=== PATIENT | female | born 1940 | race Caucasian/White ===

== ENCOUNTER 2020-07-17 10:32 | Emergency (ER) | payer MEDICARE, SELFPAY ==
[2020-07-17 10:51] VITALS: BP 117/60; PULSE 54; RESP 20; TEMP 36.4; O2SAT 98
[2020-07-17] MEDS: TETANUS,DIPHTHERIA,AC PERTUSSIS ADULT (0.5 ML) BOOSTRIX IM (11:07)
--- NOTE | 2020-07-17 11:52 | ED.ANIMALBIT ---
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 Patient states that she sustained a provoked bite to her right thenar area, as she tried to take away some food. Tetanus status is uncertain, she requests update. Symptoms are mild, better with compression or elevation from abrasion of the thumb metacarpal, and scattered superficial punctures of thumb webspace. Discussed plan and she agrees to loosely approximate the deeper punctures, using Steri-Strips and wound glue-but not gluing the wound directly [just bandages]. Related Data Home Medications Medication Instructions Recorded Confirmed cyclosporine [Restasis MultiDose] drp 07/17/20 diltiazem HCl PO 07/17/20 furosemide 07/17/20 metoprolol succinate PO 07/17/20 potassium chloride meq PO 07/17/20 pravastatin 07/17/20 rivaroxaban [Xarelto] mg 07/17/20 Allergies Allergy/AdvReac Type Severity Reaction Status Date / Time No Known Allergies Allergy Verified 09/25/18 09:46 Review of Systems Review of Systems: Narrative: General/Constitutional: No weight loss,fever Eyes: N0: Redness,discharge Ears/Nose/Throat: No: Epistaxis,ear discharge Respiratory: Denies: Hemoptysis Gastrointestinal: No Vomiting, Bleeding-rectal Skin: No Lumps, eruption Neurologic: No Focal Weakness,Sz Hematologic: Denies: Petechiae/Purpura Psychiatric: No: Suicida ideationl All Other Systems: Reviewed and Negative [facility] Social History Social History Gender identity (if verbalized by the patient): Female Comments At time of signature, agree with nursing past medical, surgical, social and family history. There is no relevant family history pertinent to the presenting complaint Exam Narrative: Exam Narrative: General Appearance: Well appearing, , Conjunctiva clear Ears: External ear normal, Auditory canal normal Nose: Normal nose, Nares clear Mouth/Throat: Normal appearing, Normal lips Neck: Supple Respiratory: Airway patent, No respiratory distress Skin: Warm, Dry, Normal color, abrasion distal to snuffbox; only fairly approximating punctures to the thenar mm MS- hand: Normal strength (mostly intact, limited flexion/extension by pain), Tenderness ( thenar, with mild decreased ROM), Swelling (laterally), Other (no anterior drawer, no collateral laxity, Neurological: A&O x3, , Normal affect Course Vital Signs Vital signs: Vital Signs Temperature 97.5 F L 07/17/20 10:51 Pulse Rate 54 L 07/17/20 10:51 Respiratory Rate 20 07/17/20 10:51 Blood Pressure 117/60 07/17/20 10:51 Pulse Oximetry 98 07/17/20 10:51 Temperature 97.5 F L 07/17/20 10:51 Pulse Rate 54 L 07/17/20 10:51 Respiratory Rate 20 07/17/20 10:51 Blood Pressure 117/60 07/17/20 10:51 Pulse Oximetry 98 07/17/20 10:51 Procedures Laceration Laceration 1: Date: 07/17/20 Site: upper extremity Side (If applicable): right Size (cm): 1 Description: linear Pre-repair: irrigated extensively ====== Skin Level ====== Skin layer closed with: dermabond and steri strips ====== Subcutaneous Layer ====== ====== Muscle Layer ====== ====== Tendon Layer ====== Discharge Plan Discharge Clinical Impression: Dog bite Qualifiers: Encounter type: initial encounter Qualified Code(s): W54.0XXA - Bitten by dog, initial encounter Patient Disposition: Home, Self-Care Condition: Stable Instructions: Antibiotic Form, Animal Bite (ED) Prescriptions: New amoxicillin-pot clavulanate [Augmentin] 500-125 mg tablet 1 tablet PO Q12H Qty: 10 RF: 0 tramadol 50 mg tablet 50 mg PO Q6H PRN (Reason: pain) Qty: 15 RF: 1 mupirocin 2 % ointment 1 ap
== END 2020-07-17 11:42 | disposition home or self-care (01) ==
PROVIDERS: Emergency Provider Emergency Medicine; PCP Nurse Practitioner Adult Health
DX: S61.411A Laceration without foreign body of right hand, initial encounter (principal); W54.0XXA Bitten by dog, initial encounter; Z23 Encounter for immunization; I48.91 Unspecified atrial fibrillation; I11.0 Hypertensive heart disease with heart failure; I50.9 Heart failure, unspecified; I25.10 Atherosclerotic heart disease of native coronary artery without angina pectoris; E78.00 Pure hypercholesterolemia, unspecified
CPT/HCPCS: 12001; 90471; 90715; 99213; G0463

== ENCOUNTER → 2020-11-03 10:22 | Outpatient (CLI) | payer MEDICARE, SELFPAY ==
--- NOTE | ~2020-11-03 | MM_ITS ---
EXAMINATION: MM screening rober BI w paresh HISTORY: Screening mammogram TECHNIQUE: Craniocaudal and mediolateral oblique 3-D tomosynthesis images were obtained and synthetic 2-D images were generated. CAD analysis was submitted and interpreted. COMPARISON: 08/28/2018, 05/24/2016, 02/01/2015 bilateral digital screening mammogram examinations BREAST PARENCHYMAL COMPOSITION: There are scattered areas of fibroglandular density. FINDINGS: There is no evidence of suspicious mass, calcification, or architectural distortion to sugg est malignancy in either breast. There has been no suspicious interval change. IMPRESSION: 1. No mammographic evidence of malignancy. 2. Recommend routine screening mammography in one year. BI-RADS Category 1: Negative Reviewed, dictated and finalized at location A.
== END ==
PROVIDERS: PCP Nurse Practitioner Adult Health; Visit Provider Nurse Practitioner Adult Health
DX: Z12.31 Encounter for screening mammogram for malignant neoplasm of breast (principal)
CPT/HCPCS: 77063; 77067

== ENCOUNTER 2021-04-07 21:15 | Inpatient (IN) | payer MEDICARE, SELFPAY ==
--- NOTE | ~2021-04-07 | XR_ITS ---
EXAMINATION: XR chest 2V DATE: 04/07/2021 22:27 INDICATION: Shortness of breath TECHNIQUE: AP and lateral views of the chest are obtained. COMPARISON: 12/02/2015 FINDINGS: The lungs are free of acute opacities. There is no pleural effusion or pneumothorax. The ca rdiomediastinal silhouette is normal. There are bridging osteophytes at multiple levels in the spine, consistent with diffuse idiopathic skeletal hyperostosis (DISH). Surgical clips in the right upper q uadrant are likely from prior cholecystectomy. IMPRESSION: 1. No acute cardiopulmonary abnormality. Reviewed, dictated and finalized at location A.
--- NOTE | 2021-04-07 21:17 | ECG_ITS ---
Measurements Intervals [place] Rate: 106 P: SD: 0 QRS: -10 QRSD: 83 T: 25 QT: 302 QTc: 402 Interpretive Statements ATRIAL FIBRILLATION WITH RAPID VENTRICULAR RESPONSE MISSING LEAD V3 INCOMPLETE RIGHT BUNDLE BRANCH BLOCK CONSIDER INFERIOR INFARCT, AGE INDETERMINATE BORDERLINE ST-T WAVE ABNORMALITY- ANTEROLAT/HIGH LAT LEADS ABNORMAL ECG Electronically Signed On 04-07-2021 23:15:37 CDT by Petr Paul D.O.
[2021-04-07 21:18] VITALS: BP 113/76; PULSE 128; RESP 20; TEMP 36.7; O2SAT 100
--- NOTE | 2021-04-07 21:41 | PC.NURSE ---
contacted pt. daughter to be in room w/ pt. states she will be right in.
[2021-04-07 22:16] VITALS: BP 136/78; PULSE 107; RESP 20; O2SAT 99
[2021-04-07 22:18] LABS: Basophils Absolute Auto 0.1 K/mm3 (0.0-0.1); Basophils Percent Auto 0.9 % (0.2-1.2); Eosinophils Absolute Auto 0.1 K/mm3 (0-0.3); Eosinophils Percent Auto 0.9 % (0-4.4); Hematocrit 35.9 % (37.0-47.0); Hemoglobin 11.3 g/dL (12.0-15.0); Immature Granulocyte Absolute 0.02 K/mm3 (0.00-0.031); Immature Granulocyte Percent A 0.3 % (0-0.5); Lymphocytes Absolute Auto 2.16 K/mm3 (0.9-3.2); Mean Corpuscular HGB Conc 31.5 g/dl (32-36); Mean Corpuscular Hemoglobin 29.7 pg (26-34); Mean Corpuscular Volume 94.5 fl (80-100); Monocytes Absolute Auto 0.6 K/mm3 (0.1-0.6); Monocytes Percent Auto 8.2 % (2.6-8.5); Neutrophils Absolute Auto 4.1 K/mm3 (1.3-6.7); Neutrophils Percent Auto 58.7 % (45.5-73.1); Platelet Count Result 364 k/mm3 (150-375); Red Cell Distribution Width 14.2 % (11.5-14.5)
--- NOTE | 2021-04-07 22:22 | PC.NURSE ---
Pt to XY via stretcher at this time
[2021-04-07 22:31] LABS: Anion Gap 11 mmol/L (8-16); Blood Urea Nitrogen 13 mg/dL (7-17); Calcium 9.1 mg/dL (8.4-10.2); Carbon Dioxide 31 mmol/L (22-30); Chloride 97 mmol/L (98-107); Estimated CRCL calculation 47 ml/min; Estimated Glomerular Filt Rate > 60; Glucose 121 mg/dL (65-110); Potassium 2.3 mmol/L (3.4-5.0); Sodium 139 mmol/L (137-145)
--- NOTE | 2021-04-07 22:51 | PC.NURSE ---
Pt ambulated to bathroom with steady gait.
--- NOTE | 2021-04-07 23:03 | ED.DIZZY ---
HPI - Dizziness General Chief Complaint: Dizziness Stated Complaint: Dizzy Time Seen by Provider: 04/07/21 22:07 History of Present Illness HPI Narrative: Patient with recent discharge from rehab and history of chronic kidney disease atrial fibrillation PE and recent facial surgery for malignancy presents with dizziness. And reports she was walking around the house today and was feeling dizzy and lightheaded so she came to the ER for evaluation. She denies recent fevers,, congestion. She denies focal areas of pain chest pain or abdominal pain. She denies recent nausea vomiting or changes in appetite. Reports a history of hypokalemia causing dizziness and concerned that similar things happening today. She has previously taken potassium pills but those were discontinued given her recent hospital course and she was recently restarted on her Lasix. Related Data Home Medications Medication Instructions Recorded Confirmed furosemide 20 mg PO DAILY 04/08/21 04/08/21 Allergies Allergy/AdvReac Type Severity Reaction Status Date / Time No Known Allergies Allergy Verified 04/08/21 01:27 Review of Systems Review of Systems: CONSTITUTIONAL: Denies fever, chills, or sweats. EYES: Denies visual changes, redness, or discharge. ENT: Denies rhinorrhea, congestion, sore throat, or otalgia. CARDIOVASCULAR: Denies chest pain, palpitations, or edema. RESPIRATORY: Denies cough or dyspnea. GASTROINTESTINAL: Denies abdominal pain, nausea, vomiting, or diarrhea. GENITOURINARY: Denies dysuria or hematuria. SKIN: Denies rash or itching. MUSCULOSKELETAL: Denies back pain, joint pain, or myalgia. NEUROLOGIC: Denies headache, numbness, dizziness, or weakness. PSYCHIATRIC: Denies anxiety or depression. All systems reviewed & are unremarkable except as noted in HPI and below PMFSH Past Medical History Medical History Atrial fibrillation Chronic kidney disease Hyperlipidemia Hypertension Surgical History Surgical History H/O knee surgery H/O tubal ligation History of cholecystectomy S/P sinus surgery Family History Family History (Updated 04/08/21 @ 00:59 by Ni Han RN) Father Acute myocardial infarction Testicular cancer Mother Acute myocardial infarction Sibling Thyroid ca Social History Social History Social History: patient lives with her in a single-level home. Patient works full-time and was completely independent prior to admission. Daughter will provide assistance at time of discharge Alcohol intake: never Substance use: never Substance use type: does not use Gender identity (if verbalized by the patient): Female Spiritual care concerns: No Exam Narrative: GENERAL: Well-appearing, well-nourished, and in no acute distress. HEAD: Normocephalic, atraumatic. EYES: PERRLA and EOMI. ENT: Nares clear, no rhinorrhea or epistaxis. Mucous membranes moist. NECK: Supple. No masses. No JVD CHEST: Clear to auscultation. No respiratory distress. No wheezes rales or rhonchi HEART: Regular rate and rhythm. No murmur heard. Normal peripheral pulses. ABDOMEN: Soft, nontender, nondistended, normal active bowel sounds. EXTREMITIES: Normal range of motion. No edema. SKIN: Warm, dry, no rash. NEURO: No focal deficits. Alert and oriented x3. PSYCH: Normal mood and affect. Course Reevaluation(s) Reevaluation #1: Labs and plan reviewed with patient. Patient comfortable with the inpatient plan. Call placed to hospitalist team. Date: 04/07/21 Time: 23:07 Vital Signs Vital signs: Vital Signs Temperature 36.7 C 04/07/21 21:18 Pulse Rate 128 H 04/07/21 21:18 Respiratory Rate 20 04/07/21 21:18 Blood Pressure 113/76 04/07/21 21:18 Pulse Oximetry 100 04/07/21 21:18 Temperature 37.0 C 04/08/21 00:58 Pulse Rate 85 1
[2021-04-07 23:16] LABS: Add Urine Microscopic? YES; Appearance Urine Cloudy (Clear); Bacteria Urine Trace /hpf; Bilirubin Urine Negative (Negative); Blood Urine Negative (Negative); Color Urine Yellow (Yellow); Glucose Urine UA Negative (Negative); Ketones Urine Trace mg/dL (Negative); Leukocyte Esterase Ur 1+ LEU/UL (Negative); Mucus Urine Few /lpf; Nitrate Urine Negative (Negative); Protein Urine 1+ mg/dL (Negative); Specific Grav Ur 1.021 (1.001-1.035); Squamous Epithelial Cell Urine Many /hpf (Few); Transitional Epi Cells Urine Rare /hpf (None Seen); Urobilinogen Urine Negative mg/dL (<2.0); WBC Urine 21-30 /hpf
[2021-04-07 23:22] VITALS: BP 137/72; PULSE 98; RESP 19; O2SAT 100
[2021-04-07] MEDS: SODIUM CHLORIDE 0.9% IV 1,000 ML 125 ML (23:23)
[2021-04-08] VITALS (12 sets, daily range): BP systolic 114–152; BP diastolic 65–73; PULSE 82–134; RESP 16–20; TEMP 36.4–37.2; O2SAT 91–100; BMI 28.3
--- NOTE | 2021-04-08 00:46 | ADMGEN ---
This patient, Sulema Salamanca, was admitted to 2 Medical Room 240-. Patient/family oriented to hospital policies and general routines including ID bracelet, bed and alarms, visiting hours, pain management, procedures, bathroom and other care routines, personal items, smoking policy, room service/diet, and visiting hours. Information on how to activate the Rapid Response Team has been discussed. Patient/Family are encouraged to report perceived risks to care and to ask questions if they do not understand what they are told or what they should do.
[2021-04-08 06:13] LABS: Anion Gap 6 mmol/L (8-16); Blood Urea Nitrogen 10 mg/dL (7-17); Calcium 8.3 mg/dL (8.4-10.2); Carbon Dioxide 32 mmol/L (22-30); Chloride 103 mmol/L (98-107); Estimated CRCL calculation 61 ml/min; Estimated Glomerular Filt Rate > 60; Glucose 109 mg/dL (65-110); Potassium 2.6 mmol/L (3.4-5.0); Sodium 141 mmol/L (137-145)
[2021-04-08 06:49] LABS: Magnesium 1.9 mg/dL (1.6-2.3)
[2021-04-08] MEDS: SODIUM CHLORIDE 0.9% IV 1,000 ML 125 ML IV CONT (07:07)
--- NOTE | 2021-04-08 09:19 | PM.IMHP ---
H&P: HPI History of Present Illness Date/Time: 04/08/21 09:19 <Maria Shaw PA-C - Last Filed: 04/08/21 10:28> Chief Complaint: Dizziness <Maria Shaw PA-C - Last Filed: 04/08/21 10:28> Narrative: Patient is a 80-year-old female with a recent history of adenoid cystic carcinoma with resection, AFib, recent PE, and hyperlipidemia who presented emergency room for dizziness. Patient states the dizziness started last night around 8:00 p.m. She explains that it was continuous and movement nor resting helped improve it. She said she has had this dizziness before and is associated with low potassium. She has no complaints of dizziness today and is feeling much better. She states that her Lasix was discontinued after leaving rehab but her primary care physician continued it. She did not continue her potassium with the Lasix. 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 She has had issues of extremity swelling in the past but today has not had any swelling. She has been eating and drinking okay and has not had any diarrhea. 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 She believes the cancer is contained in her sinus cavity with no evidence of brain metastases. She denies chest pain, shortness of breath, fevers, nausea, vomiting, abdominal pain, constipation, double vision, or rashes/wounds. <Maria Shaw PA-C - Last Filed: 04/08/21 10:28> Review of Systems Review of Systems: All systems reviewed & are unremarkable except as noted in HPI and below <Maria Shaw PA-C - Last Filed: 04/08/21 10:28> [facility] Past Medical History Medical History: Medical History (Updated 04/08/21 @ 10:24 by Maria Shaw PA-C) Adenoid cystic carcinoma Atrial fibrillation Chronic kidney disease Hyperlipidemia Hypertension <Maria Shaw PA-C - Last Filed: 04/08/21 10:28> Surgical History Surgical History: Surgical History H/O knee surgery H/O tubal ligation History of cholecystectomy S/P sinus surgery <Maria Shaw PA-C - Last Filed: 04/08/21 10:28> Family History Family History: Family History Father Acute myocardial infarction Testicular cancer Mother Acute myocardial infarction Sibling Thyroid ca <Maria Shaw PA-C - Last Filed: 04/08/21 10:28> Social History Social History: Social History (Updated 04/08/21 @ 10:27 by Maria Shaw PA-C) Social History: Patient was working up until last month when she had her surgery. She was a never smoker, does not drink alcohol and does not do drugs. She would like her daughter, Erica and Samuel to make decisions for her if she is unable to make them. She would like to be a full code Smoking status: Never smoker Alcohol intake: never Substance use: never Substance use type: does not use Gender identity (if verbalized by the patient): Female Spiritual care concerns: No <Maria Shaw PA-C - Last Filed: 04/08/21 10:28> Meds Home Medications and Allergies Home medications: Home Medications Medication Instructions Recorded Confirmed Type acetaminophen [Mapap 650 mg PO Q4H PRN #0 tablet 03/26/21 04/08/21 Rx (acetaminophen)] calcium carbonate-vitamin D3 500 mg PO QAM #0 tablet 03/26/21 04/08/21 Rx [Oyster Shell Calcium-Vit D3] chlorhexidine gluconate 15 ml SWISHSPIT PCHS #0 ml 03/26/21 04/08/21 Rx diltiazem HCl 180 mg PO QAM #30 cap 03/26/21 04/08/21 Rx pravastatin 40 mg PO BEDTIME #0 tablet 03/26/21 04/08/21 Rx sodium chloride [Saline Mist] 1 spray INTRANASAL Q6HR PRN #0 ml 03/26/21 04/08/21 Rx Eliquis 5 mg PO BID #60 tablet 03/27/21 04/08/21 Rx furosemide 20 mg PO DAILY 04/08/21 04/08/21 History metoprolol tartrate 100 mg PO Q12H 04/09/21 04/09/21 History pota
[2021-04-08] MEDS: dilTIAZem HCL CD 180 MG CAP.ER.24H PO (11:10)
[2021-04-08] MEDS: MAGNESIUM OXIDE 400 MG TABLET PO (11:11)
[2021-04-08] MEDS: APIXABAN 5 MG TABLET PO ×2 (11:11→17:02)
[2021-04-08] MEDS: METOPROLOL TARTRATE 50 MG TAB 100 MG PO ×2 (11:50→21:08)
[2021-04-08 14:07] LABS: Anion Gap 6 mmol/L (8-16); Blood Urea Nitrogen 8 mg/dL (7-17); Calcium 8.2 mg/dL (8.4-10.2); Carbon Dioxide 31 mmol/L (22-30); Chloride 103 mmol/L (98-107); Estimated CRCL calculation 61 ml/min; Estimated Glomerular Filt Rate > 60; Glucose 150 mg/dL (65-110); Potassium 3.4 mmol/L (3.4-5.0); Sodium 140 mmol/L (137-145)
[2021-04-08] MEDS: POTASSIUM CHLORIDE 20 MEQ PACKET (FOR LIQUID) PO (17:02)
[2021-04-08] MEDS: PRAVASTATIN SODIUM 20 MG TABLET 40 MG PO (21:08)
[2021-04-09] VITALS: BP 114/56; PULSE 72; PULSE 80; RESP 18; TEMP 36.4; O2SAT 98
[2021-04-09 04:00] VITALS: BP 102/53; PULSE 71; PULSE 77; RESP 16; TEMP 36.3; O2SAT 97
[2021-04-09 05:39] LABS: Alanine Aminotransferase 19 U/L (4-35); Albumin Level 2.9 g/dL (3.5-5.1); Alkaline Phosphatase 74 U/L (38-126); Anion Gap 4 mmol/L (8-16); Aspartate Amino Transferase 30 U/L (14-36); Bilirubin,Total 0.1 mg/dL (0.2-1.3); Blood Urea Nitrogen 6 mg/dL (7-17); Calcium 8.6 mg/dL (8.4-10.2); Carbon Dioxide 29 mmol/L (22-30); Chloride 106 mmol/L (98-107); Estimated CRCL calculation 70 ml/min; Estimated Glomerular Filt Rate > 60; Glucose 114 mg/dL (65-110); Magnesium 2.1 mg/dL (1.6-2.3); Sodium 139 mmol/L (137-145)
[2021-04-09 08:00] VITALS: PULSE 103
[2021-04-09 08:39] VITALS: PULSE 94
[2021-04-09] MEDS: METOPROLOL TARTRATE 50 MG TAB 100 MG PO (08:39)
[2021-04-09] MEDS: dilTIAZem HCL CD 180 MG CAP.ER.24H PO (08:39)
[2021-04-09] MEDS: APIXABAN 5 MG TABLET PO (08:40)
[2021-04-09] MEDS: MAGNESIUM OXIDE 400 MG TABLET PO (08:41)
[2021-04-09] MEDS: POTASSIUM CHLORIDE 20 MEQ PACKET (FOR LIQUID) 40 MEQ PO (08:47)
--- NOTE | 2021-04-09 10:03 | PM.DS ---
DS: Admitting Diagnosis Discharge Date 04/09/21 Admitting Diagnosis dizziness, hypokalemia DS: Discharge Diagnosis Discharge Diagnosis (1) Acute hypokalemia: Code(s): E87.6 - Hypokalemia Status: Acute Assessment and Plan: Potassium was 2.3 on admission and improved during her stay -will continue potassium outpt and recheck labs next week. She agrees to f/u with pcp for results to see if her potassium needs to be adjusted. -the patient had recently held her Lasix and then restarted it but did not restart the potassium. This is likely the cause of hypokalemia -she denies diarrhea and her appetite has been good (2) Dizziness: Code(s): R42 - Dizziness and giddiness Status: Acute Assessment and Plan: Patient attributes this to above. Resolved. 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 Her CT was not adequately visualized the [extent] of the disease and she was referred to [facility] for [facility] evaluation. The patient underwent a nasal endoscopy with biopsy on 02/22/[address] Mays. [Pathology is not available to ok] She underwent a PET scan on 02/22/2021 and MRI on 02/26/2021. Both of these exams revealed an expansile mass involving the entirety of the maxillary sinus on the left side. [It] Appear[ed] to involve branches of the trigeminal nerve and expanded into the mass to caterer space. Her Arb orbit appear to be unremarkable. On 03/15/2021 patient underwent a left mass the max elect to ok, left deep lobe parotidectomy, left neck dissection and left orbital floor plating by Dr. Mays. (4) S/P sinus surgery: Code(s): Z98.890 - Other specified postprocedural states Status: Acute Assessment and Plan: As above (5) History of pulmonary embolus (PE): Code(s): Z86.711 - Personal history of pulmonary embolism Status: Acute Assessment and Plan: Per rehab notes:On 03/18/2021 patient was hypoxic after surgery. CT revealed pulmonary embolism involving numerous segments and subsegmental pulmonary emboli in all lobes with no evidence of right heart strain. She is now on Eliquis (6) Atrial fibrillation: Code(s): I48.91 - Unspecified atrial fibrillation Status: Acute Assessment and Plan: Continue metoprolol, diltiazem and Eliquis DS: Summary Hospital Course Hospital Course: DOS 04/09/21 Patient is a 80-year-old female with a recent history of adenoid cystic carcinoma with resection, AFib, recent PE, and hyperlipidemia who presented emergency room for dizziness. Patient states the dizziness started around 8:00 p.m. She explains that it was continuous and movement nor resting helped improve it. She said she has had this dizziness before and is associated with low potassium. She has no complaints of dizziness today and is feeling much better. She states that her Lasix was discontinued after leaving rehab but her primary care physician continued it. She did not continue her potassium with the Lasix. 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 She has had issues of extremity swelling in the past but has not had any swelling. She has been eating and drinking okay and has not had any diarrhea. 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 She believes the cancer is contained in her sinus cavity with no evidence of brain metastases. She denies chest pain, shortness of breath, fevers, nausea, vomiting, abdominal pain, constipation, double vision, or rashes/wounds. On admission her potassium was 2.3 and was replaced. She ws 3.0 at discharged and eager
== END 2021-04-09 11:20 | disposition home or self-care (01) | DRG 641 ==
LOC: ANHED 23:08 → ANH2MED 04-08 00:08
PROVIDERS: Physician Assistant; Admitting Provider Internal Medicine; Emergency Provider Emergency Medicine; PCP Nurse Practitioner Adult Health; Visit Provider Family Medicine
DX: E87.6 Hypokalemia (principal); I48.20 Chronic atrial fibrillation, unspecified; R42 Dizziness and giddiness; E78.5 Hyperlipidemia, unspecified; I12.9 Hypertensive chronic kidney disease with stage 1 through stage 4 chronic kidney disease, or unspecified chronic kidney disease; N18.9 Chronic kidney disease, unspecified; C11.1 Malignant neoplasm of posterior wall of nasopharynx; Z86.711 Personal history of pulmonary embolism; Z79.01 Long term (current) use of anticoagulants; Z90.49 Acquired absence of other specified parts of digestive tract; Z98.890 Other specified postprocedural states
CPT/HCPCS: 36415; 71046; 80048; 80076; 81001; 83735; 85025; 87086; 93005; 96361; 96365; 96366; 97165; 99285; A9270; G0378; J3480; J7030

== ENCOUNTER → 2022-01-19 15:49 | Outpatient (CLI) | payer MEDICARE, SELFPAY ==
--- NOTE | ~2022-01-19 | XR_ITS ---
XR ankle RT min 3V DATE: 01/19/2022 16:49 INDICATION: Right ankle and foot pain TECHNIQUE: 4 views COMPARISON: None FINDINGS: There is soft tissue swelling of the ankle, greater laterally. A small nondisplaced cortical fracture of the tip of the lateral malleolus is not excluded. Recommend clinical correlation for history of trauma and point tenderness. No other recent fracture or dislocation is evident. Osteoarthritis at tarsal and tarsometatarsal joints. Osteopenia. IMPRESSION: Lateral soft tissue swelling; cannot exclude subtle nondisplaced cortical fracture of the tip of the lateral malleolus; recommend clinical correlation Osteopenia Plantar and posterior calcaneal enthesopathy Osteoarthritic change at the tarsal and tarsometatarsal joints. Reviewed, dictated and finalized at location A. IMPRESSION: Lateral soft tissue swelling; cannot exclude subtle nondisplaced co rtical fracture of the tip of the lateral malleolus; recommend clinical correla tion Osteopenia Plantar and posterior calcaneal enthesopathy Osteoarthritic change at the tarsal and tarsometatarsal joints.
--- NOTE | ~2022-01-19 | XR_ITS ---
XR knee RT 3V 01/19/2022 16:49 Indication: Right knee pain Procedure: 3 views right knee Comparison: 12/08/2004 and 07/03/2014 Findings: Interval placement of right total knee arthroplasty. Prosthesis well seated. No fracture or traumatic malalignment. No significant joint effusion. There are is atherosclerosis. Impression: 1: No acute bone or joint abnormality. Reviewed, dictated and finalized at location A. Impression: 1: No acute bone or joint abnormality.
--- NOTE | ~2022-01-19 | XR_ITS ---
XR knee LT 3V 01/19/2022 16:49 Indication: Left knee pain Procedure: 3 views left knee Comparison: 07/03/2014 Findings: There is moderate-severe tricompartment osteoarthritis of the left knee. Small joint effusi on. No acute fracture or traumatic malalignment. There are is atherosclerosis. Osteopenia. 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 Reviewed, dictated and finalized at location A. 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
== END ==
PROVIDERS: PCP Nurse Practitioner Adult Health; Visit Provider Nurse Practitioner Adult Health
DX: M19.071 Primary osteoarthritis, right ankle and foot (principal); M85.871 Other specified disorders of bone density and structure, right ankle and foot; M77.31 Calcaneal spur, right foot; M17.12 Unilateral primary osteoarthritis, left knee
CPT/HCPCS: 73562; 73610

== ENCOUNTER → 2022-02-01 12:19 | Outpatient (CLI) | payer MEDICARE, SELFPAY ==
--- NOTE | ~2022-02-01 | XR_ITS ---
XR_[id number]_CR DATE: 02/01/2022 12:48 INDICATION: Twisting injury, lateral foot pain TECHNIQUE: 4 Standing views COMPARISON: None FINDINGS: Prominent plantar and posterior calcaneal enthesopathy. Mild hallux valgus and bunion defor mity. Mild osteoarthritic change at the first metatarsophalangeal joint and some interphalangeal joints. No fracture, dislocation, periosteal reaction or bone destruction. IMPRESSION: No fracture or dislocation Prominent plantar and posterior calcaneal enthesopathy Polyarticular osteoarthritis Hallux valgus and bunion deformity Reviewed, dictated and finalized at Location A. Reviewed, dictated and finalized at location A.
--- NOTE | ~2022-02-01 | XR_ITS ---
XR ankle RT min 3V 02/01/2022 12:48 Indication: Right ankle pain. Procedure: 4 views right ankle Comparison: 01/19/2022 Findings: There are degenerative changes of the right ankle. There are loose bodies adjacent to the m edial and lateral malleoli, likely related to remote trauma. Ankle mortise intact. There are degenera tive calcaneal enthesophytes. No acute fracture or traumatic malalignment. There are degenerative ofelia nges of the midfoot. 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 Reviewed, dictated and finalized at location A. 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
== END ==
PROVIDERS: PCP Nurse Practitioner Adult Health; Visit Provider Nurse Practitioner Adult Health
DX: M77.31 Calcaneal spur, right foot (principal); M19.071 Primary osteoarthritis, right ankle and foot; M20.11 Hallux valgus (acquired), right foot
CPT/HCPCS: 73610; 73630

== ENCOUNTER → 2022-10-12 14:29 | Outpatient (CLI) | payer MEDICARE, SELFPAY ==
--- NOTE | ~2022-10-12 | XR_ITS ---
XR wrist LT min 3V DATE: 10/12/2022 14:42 INDICATION: Left wrist pain TECHNIQUE: 4 views COMPARISON: None FINDINGS: There is osteopenia. There is prominent osteoarthritic change at the triscaphe and first ca rpometacarpal joints, in addition to the interphalangeal joint of the first digit. No fracture or dislocation, periosteal reaction or bone destruction. IMPRESSION: Polyarticular osteoarthritis Osteopenia. Reviewed, dictated and finalized at location A.
== END ==
PROVIDERS: PCP Nurse Practitioner Family; Visit Provider Nurse Practitioner Family
DX: M19.032 Primary osteoarthritis, left wrist (principal); M85.832 Other specified disorders of bone density and structure, left forearm
CPT/HCPCS: 73110